=== PATIENT | male | born 1985 | race Hispanic/Latino ===

== ENCOUNTER → 2021-02-24 13:33 | Outpatient (ROUT) | payer OTHER, SELFPAY ==
[2021-02-24 13:57] LABS: COVID19 -Nasal RAPID Negative (Negative)
== END ==
PROVIDERS: Visit Provider Family Medicine
DX: Z20.822 Contact with and (suspected) exposure to COVID-19 (principal)
CPT/HCPCS: 87635

== ENCOUNTER → 2021-08-30 09:30 | Outpatient (CLI) | payer OTHER, SELFPAY ==
--- NOTE | 2021-08-30 | DI.RAD.S_ITS ---
PROCEDURE: XR LUMBAR SPINE 2-3V INDICATIONS: LOW BACK PAIN TECHNIQUE: Three views of the lumbar spine were acquired. COMPARISON: None. FINDINGS: Bones: Five [id number] vertebrae are present. Trace anterolisthesis L5 on S1. Moderate facet arthropathy at this level. Mild degenerative endplate change at L2-3 with superior endplate spurring. No vertebral body compression fractures. No suspicious bony lesions. Soft tissues: Overlying bowel gas pattern is normal. No suspicious soft tissue calcifications. IMPRESSION: 1. Degenerative facet arthropathy and trace anterolisthesis L5-S1. 2. Mild degenerative disc and endplate change at L2-3. Dictated by: Jeanine Hughes M.D. on 08/30/2021 at 10:02 Approved by: Jeanine Hughes M.D. on 08/30/2021 at 10:03
== END ==
PROVIDERS: Referring Provider Family Medicine; Visit Provider Family Medicine
DX: M54.59 Other low back pain (principal); M47.817 Spondylosis without myelopathy or radiculopathy, lumbosacral region; M51.36 Other intervertebral disc degeneration, lumbar region
CPT/HCPCS: 72100

== ENCOUNTER → 2021-10-27 12:32 | Outpatient (ROUT) | payer OTHER, SELFPAY ==
[2021-10-27 13:02] LABS: COVID19 -Nasal RAPID Negative (Negative)
== END ==
PROVIDERS: Visit Provider Family Medicine
DX: Z20.822 Contact with and (suspected) exposure to COVID-19 (principal)
CPT/HCPCS: 87635